=== PATIENT | male | born 1930 | race African-American/Black ===

== ENCOUNTER 2017-04-21 22:08 | Inpatient (IN) ==
--- NOTE | 2017-04-21 22:54 | Emergency Department Note ---
Rashawn Hernandez Brittany, am scribing for, and in the presence of, Mac Ann MD 22 :29. Marissa Hernandez Hans, MD, personally performed the services described in this documentation, ascribed by Dalila Morocho in my presence, and it is both accurate and complete . Arrival - Arrival Chief Complaint: Urogenital - Male Stated Complaint: UTI ED Nursing Triage Note: TRANSFER FROM [facility] FOR ADMISSION OF PATIENT. PT IS IN CARE OF DR TIAN Mode of Arrival: Stretcher Limitations: No Limitations Source: Patient, Family, RN Notes Reviewed Time Seen by Provider: 04/21/17 22:12 - History of Present Illness HPI Narrative: Patient is a 87 y/o black male presenting to the ED via EMS from [facility] for admission. Patient has a history of Bladder CA and is under the care of Dr. Morocho and Dr. Tian. Patient last received a chemotherapy treatment 2-3 weeks ago. He has bilateral nephrostomy tubes that are routinely changed every 2 months. Family at the bedside report that he has an appointment in [place], [place] to have these changed next week. Family reports that since receiving chemotherapy he has began to have some output through the urinary tract. Patient was to have a CT Abdomen/Pelvis performed at [facility] next week to see if chemotherapy has been effective. Family states that patient had been complaining of not feeling well throughout the day today. They note that he'd also been running a fever and complaining of abdominal pain which prompted their presentation to [facility]. Prior to transfer here to [facility] it is noted that patient received a dose of Levaquin. No further complaints. Allergies/Adverse Reactions: Allergies Allergy/AdvReac Type Severity Reaction Status Date / Time No Known Allergies Allergy Verified 10/27/16 15:31 Home Medications: Home Medications Medication Instructions Recorded Confirmed Type Metoprolol Succinate Xl [Toprol Xl] 50 mg PO DAILY 12/31/16 02/21/17 History Simvastatin [Zocor] 20 mg PO BEDTIME 12/31/16 02/21/17 History Tamsulosin [Flomax] 0.4 mg PO BID 12/31/16 02/21/17 History Review of System - Review of System 12 point system: reviewed and no additional remarkable complaints except as stated - Review of System Constitutional: Present: fever Respiratory: Absent: respiratory distress Gastrointestinal: Present: abdominal pain. Absent: nausea, vomiting Genitourinary male: Absent: urgency, dysuria, frequency Musculoskeletal: Absent: back pain Medical,Surgical,& Family Hx - Medical History Cardio: History of: Hypertension Endocrine: History of: Dyslipidemia Genitourinary: History of: Bladder Problem ([place]) Other: History of: Cancer - Surgical History Surgical History: noncontributory - Family History Family History: Reports;: Family Cancer, Family Diabetes - Social History Smoking Status: Never smoker Frequency of Alcohol Use: None Type of Drug Use: None Exam Vital Signs: Vital Signs Temperature 98.9 F 04/21/17 22:18 Pulse Rate 74 04/21/17 22:18 Respiratory Rate 18 04/21/17 22:18 Blood Pressure 160/70 04/21/17 22:18 O2 Sat by Pulse Oximetry 100 04/21/17 22:18 - General General appearance: alert, in no apparent distress - Head Head exam: Present: atraumatic, normocephalic, normal inspection - Eye Eye exam: Present: normal appearance, PERRL, EOMI - ENT ENT exam: Present: normal exam, normal oropharynx - Neck Neck exam: Present: normal inspection, full ROM, trachea midline - Chest Chest inspection: Present: normal inspection, symmetric chest wall rise - Respiratory Respiratory exam: Present: normal lung sounds bilaterally. Absent: respiratory distress - Cardiovascular Cardiovascular exam: Present: regular rate, normal rhythm, normal heart sounds - Abdominal Exam Abdominal exam: Present: soft, tenderness (suprapubic TTP), normal bowel sounds - Extremities Exam Extremities exam: Present: normal inspection - Back Exam Back exam: Present: other (Bilateral nephrostomy tubes) - Neurological Exam Neurological exam: Present: alert, oriented X3, CN II-XII intact. Absent: motor sensory deficit - Psychiatric Psychiatric exam: Present: normal affect, normal mood - Skin Skin exam: Present: warm, dry Course Course Narrative: The patient was transferred to [facility] with diagnosis of urinary tract infection with bilateral nephrostomy tubes in place. He is on chemotherapy. His oncologist requested admission to hospitalist. The patient's WBC was 26,[address] scans reviewed. The patient will be admitted for IV antibiotics and possible interrogation of his percutaneous nephrostomy tubes. Disposition Clinical Impression: Urinary tract infection Case discussed with: patient, patient's family Disposition: Still a Patient Condition: Stable Time of Disposition: 22:54
[2017-04-21] MEDS ORDERED: ONDANSETRON 4 MG/2 ML VIAL IV PRN (23:04)
[2017-04-21 23:19] LABS: Apearance,Urine CLEAR (Clear); Bacteria,Urine Occasional /HPF (Few); Bilirubin,Urine Negative (Negative); Blood, Urine Moderate mg/dL (Negative); Glucose,Urine (UA) Negative (Negative); Ketones,Urine Negative (Negative); Nitrite,Urine Negative (Negative); Protein,Urine Negative; RBC,Urine 2 /HPF (0-4); Urine Color Yellow (Yellow); Urine Specific Gravity 1.006 (1.001-1.035); Urine Urobilinogen < 2.0 EU/DL (0.2-1.0); WBC,Urine 18 /HPF (0-6)
[2017-04-21] MEDS ORDERED: SODIUM CHLORIDE 0.9% 1,000 ML IV SCH (23:30)
--- NOTE | 2017-04-22 00:39 | Hospitalist History & Physical ---
Assessment and Plan (1) History of bladder cancer Status: Acute Current Visit: Yes (2) Urinary tract infection Status: Acute Current Visit: Yes (3) Bilateral nephrostomy tubes Status: Acute Current Visit: Yes (4) History of hypertension Status: Acute Current Visit: Yes (5) Hyponatremia Status: Acute Current Visit: Yes (6) Anemia Status: Acute Assessment and plan: Our plan for this patient will be admitting him to our service. We will continue with IV hydration of normal saline. And expand antibiotics to include Zosyn. Recheck labs in the morning. Consult Dr. Tran for his evaluation of this patient. Discussed CODE STATUS with the family and patient would not want to be put on life support. Current Visit: Yes History of Present Illness Chief complaint: Transfer for admission from [facility] History of present illness: Mr. Irene is a 87 year old male with past medical history of bladder cancer, hypertension and increased cholesterol who finished his radiation and chemo approximately 3 weeks ago. Patient was scheduled to see Dr. Tran and Dr. Morocho Tuesday. Patient has nephrostomy tubes and is rescheduled to be replaced in [place] on next week. He has them replaced every 2 months. Patient has been complaining about feeling hot. He has been running a temperature for the past few days as high as 103. Patient went to [facility]. He had a CT scan of his abdomen and pelvis. The impression of the CT showed bilateral perinephric catheters demonstrated interval development of moderate left-sided hydronephrosis. Small air foci demonstrated within the bilateral renal collecting systems. There is peripheral hyperdensity within the posterior aspect of the renal pelvis on the left which measures up to 1.4 cm and may reflect hemorrhage or neoplasm. Significant wall thickening of the urinary bladder remains with the surrounding fat stranding suggesting inflammation. Irregular mass suggested with the inferior aspect of the bladder. Erosive change within the right pubis tuberculum again suspicious for malignancy involvement. Patient's urologist is Dr. Mcpherson. But secondary to him seeing Dr. Tran and Dr. Morocho's [place] wanted transfer the patient to our hospital. Hematology oncology thought it would be more appropriate for us to admit the patient. Home Medications Medication Instructions Recorded Confirmed Type Simvastatin [Zocor] 20 mg PO BEDTIME 12/31/16 02/21/17 History Tamsulosin [Flomax] 0.4 mg PO BID 12/31/16 02/21/17 History Aspirin [Ecotrin] 81 mg PO DAILY 04/22/17 04/22/17 History Sotalol [Betapace] 80 mg PO BID 04/22/17 04/22/17 History Allergies Allergy/AdvReac Type Severity Reaction Status Date / Time No Known Allergies Allergy Verified 10/27/16 15:31 Medical,Surgical,& Family Hx - Medical History Cardio: History of: Hypertension HEENT: History of: Ear Problem (hearing aids), Eye Problem (wears glasses) Endocrine: History of: Dyslipidemia Genitourinary: History of: Bladder Problem ([place]), Prostate Problems (cancer 17years), Recurring Urinary Tract Infections Hematology: No history of: Blood Transfusion Reaction Other: History of: Cancer - Surgical History HEENT Surgeries: Patient denies: Thyroid Surgery, Tonsilectomy & Adenoidectomy Orthopedic Surgeries: Surgical HX of;: Orthopedic Surgery - Family History Family History: Reports;: Family Cancer, Family Diabetes - Social History Smoking Status: Never smoker Frequency of Alcohol Use: None Type of Drug Use: None 12 point system: reviewed and no additional remarkable complaints except as stated Exam - Constitutional Vitals: Period Temp Pulse Resp BP Sys/Perez Pulse Ox Last 24 Hr 98.9 F-98.9 F 74-101 18-18 160-169/70-89 96-100 - General General appearance: alert, in no apparent distress - Head Head exam: Present: atraumatic, normocephalic, normal inspection - Eye Eye exam: Present: normal appearance, PERRL, EOMI - ENT ENT exam: Present: normal exam, normal oropharynx - Neck Neck exam: Present: normal inspection, full ROM, trachea midline - Chest Chest inspection: Present: normal inspection, symmetric chest wall rise - Respiratory Respiratory exam: Present: normal lung sounds bilaterally. Absent: respiratory distress - Cardiovascular Cardiovascular exam: Present: regular rate, normal rhythm, normal heart sounds - Abdominal Exam Abdominal exam: Present: soft, tenderness noted in the suprapubic area - Extremities Exam Extremities exam: Present: normal inspection - Back Exam Back exam: Present: other (Bilateral nephrostomy tubes) urine in left tube looks more infected than right tube - Neurological Exam Neurological exam: Present: alert, oriented X3, CN II-XII intact. - Psychiatric Psychiatric exam: Present: normal affect, normal mood - Skin Skin exam: Present: warm, dry Results - Labs Labs: Labs from outside facility displayed white count 1.4 hemoglobin 8.5 hematocrit 27.7 platelets 416 alk phos 228 ALT 45 AST 31 BUN 34 calcium 8.3 creatinine 2.1 carbon dioxide 23 chloride 95 glucose 123 potassium 4.8 sodium 127
[2017-04-22 06:50] LABS: Basophils % 0.1 % (0.0-0.8); Eosinophils % 0.1 % (0.00-10.9); Hematocrit 22.1 VOL% (42.0-52.0); Hemoglobin 7.1 GM/DL (14.0-18.0); Immature Granulocytes % 1.9 %; Immature Granulocytes Absolute 0.51 #; Lymphocytes # 0.8 10*3/uL (1.4-4.0); Mean Corpuscular HGB Conc 32.1 GM/DL (32-36); Mean Corpuscular Hemoglobin 28 PG (27-34); Monocytes # 1.8 10*3/uL (0.11-0.8); Monocytes % 6.6 % (1.7-12.7); Neutrophils # 23.6 10*3/uL (1.4-7.4); Neutrophils % 88.3 % (38.7-73.9); Platelet Count 293 T/CUMM (130-400); Red Blood Count 2.54 MC/CUMM (3.8-5.5); Red Cell Distribution Width 17.8 % (9.3-17.3); White Blood Count 26.7 T/CUMM (4-12)
[2017-04-22 07:23] LABS: Albumin 1.3 G/DL (3.4-5.0); Bilirubin,Total 0.8 MG/DL (0.2-1.0); Calcium 7.5 MG/DL (8.5-10.1); Osmolality,Calculated 271.5 MOS/KG (273-304); Potassium 5.5 MMOL/L (3.5-5.1); Total Protein 5.6 G/DL (6.4-8.3)
[2017-04-22 07:25] LABS: Band Neutrophils 5 % (0-10); Lymphocytes 2 % (20-55); Macrocytosis 1+; Segmented Neutrophils 90 % (50-85); Total Cells Counted 100
[2017-04-22 07:26] LABS: Burr Cells 2+; Platelet Estimate Increased; Polychromasia Slight; Target Cells Slight
--- NOTE | 2017-04-22 09:16 | Oncology Consult Note ---
Assessment and Plan (1) Bladder cancer Status: Acute Assessment and plan: This patient has received full dose radiotherapy to his bladder tumor. There is nothing else to offer from a treatment standpoint. Hopefully his radiation has controlled some tumor growth to buy him some further overall survival. His hemoglobin at baseline is only 8 so he is not far from baseline. I agree with antimicrobial coverage for possible underlying infection. He would also like to benefit from 2 units of blood. I had a lengthy discussion with his and the patient this morning about how there is nothing else to offer from an oncology standpoint. They should consider home hospice care but would need to wait to do this until after he has his stents exchanged next week at [facility]. Current Visit: Yes (2) Bilateral nephrostomy tubes Status: Acute Current Visit: Yes (3) Anemia Status: Acute Current Visit: Yes History of Present Illness History of present illness: Mr. Irene is a 87 year old male with locally advanced bladder cancer and bilateral nephrostomy tubes placed at [facility] who recently completed concurrent chemotherapy and radiation and early March 2017. He presented to [facility] last night with complaints of fever. He was found to be anemic with a hemoglobin of 7.1. His baseline usually runs around 8. CT scan done down there showed persistent thickening of the bladder consistent with previous findings. There is also some questionable findings of the kidney concerning for possible hemorrhaging versus infection. He has had numerous issues with his bilateral nephrostomy tubes has received care for these at [facility]. He was transferred [facility] from [place] for oncology evaluation. I had a lengthy discussion with the patient and his this morning. I explained to them there is nothing else to do from an oncology standpoint. The radiation that he received over the previous summer was a last ditch effort to try to control this tumor from growing any further. It was most likely not curative. Home Medications Medication Instructions Recorded Confirmed Type Simvastatin [Zocor] 20 mg PO BEDTIME 12/31/16 04/22/17 History Tamsulosin [Flomax] 0.4 mg PO BID 12/31/16 04/22/17 History Aspirin [Ecotrin] 81 mg PO DAILY 04/22/17 04/22/17 History Sotalol [Betapace] 80 mg PO BID 04/22/17 04/22/17 History Allergies Allergy/AdvReac Type Severity Reaction Status Date / Time No Known Allergies Allergy Verified 10/27/16 15:31 Medical,Surgical,& Family Hx - Medical History Cardio: History of: Hypertension HEENT: History of: Ear Problem (hearing aids), Eye Problem (wears glasses) Endocrine: History of: Dyslipidemia Genitourinary: History of: Bladder Problem ([place]), Prostate Problems (cancer 17years), Recurring Urinary Tract Infections Hematology: No history of: Blood Transfusion Reaction Other: History of: Cancer - Surgical History HEENT Surgeries: Patient denies: Thyroid Surgery, Tonsilectomy & Adenoidectomy Orthopedic Surgeries: Surgical HX of;: Orthopedic Surgery - Family History Family History: Reports;: Family Cancer, Family Diabetes - Social History Smoking Status: Never smoker Frequency of Alcohol Use: None Type of Drug Use: None 12 point system: reviewed and no additional remarkable complaints except as stated - Constitutional Constitutional: Present: fatigue, weakness. Absent: chills, fever(s) - EENT Nose, mouth and throat: Absent: dizziness - Cardiovascular Cardiovascular ROS IM: Absent: edema - Respiratory Respiratory: Absent: dyspnea - Genitourinary Genitourinary ROS male: Absent: hematuria Exam - Constitutional Vitals: Period Temp Pulse Resp BP Sys/Perez Pulse Ox Last 24 Hr 97.3 F-100.2 F 74-101 18-20 115-169/63-89 96-100 General appearance: no acute distress, under weight - Head Head Exam: Present: normocephalic, atraumatic - Eye Eye Exam: Present: EOMI. Absent: scleral icterus Pupils: Present: PERRL - ENT ENT exam: Present: normal exam, normal oropharynx - Neck Neck exam: Absent: lymphadenopathy, thyromegaly - Respiratory Respiratory exam: Present: CTAB. Absent: wheezes - Cardiovascular Cardiovascular exam: Present: RRR. Absent: JVD, systolic murmur - GI/Abdominal GI/Abdominal exam: Present: soft. Absent: ascites, distended, mass - Neurological Exam Neurological exam: Present: alert, oriented X3 - Psychiatric Psychiatric exam: Present: normal affect, normal mood - Skin Skin exam: Present: warm, dry Results - Labs CBC & BMP: 04/22/17 05:44 04/22/17 05:44 Lab Results: I have reviewed the past 24 hour labs - Diagnostic Findings Procedure: CT Abdomen and Pelvis: report reviewed by me
[2017-04-22] MEDS ORDERED: SODIUM CHLORIDE 0.9% 250 ML IV PRN ×2 (09:22→10:15)
[2017-04-22] MEDS: PANTOPRAZOLE 40 MG TABLET PO SCH (09:26)
[2017-04-22] MEDS: PIPERACILLIN/TAZOBACTAM 3,375 MG in SODIUM CHLORIDE 0.9% 100 ML IV SCH ×2 (09:27→18:08)
--- NOTE | 2017-04-22 11:09 | XRay Report ---
Portable chest Date: 04/22/2017 Clinical history: Coarse breath sounds Comparison: None Technique: Portable AP sitting chest Findings: The heart is minimally enlarged with uncoiling of the aorta. Calcified granulomata/nodes with diffuse parenchymal findings in the lungs. Degenerative changes are noted. Impression: Cardiomegaly with findings which can be seen with mild CHF/pneumonitis. Possible underlying chronic interstitial lung disease. PROCEDURE INTERPRETED AT [facility] DEPARTMENT OF RADIOLOGY Final Report Signed by: Dr. Chasity Campbell
--- NOTE | 2017-04-22 11:26 | XRay Report ---
Exam: XR knee 2V RT Date: 04/22/2017 9:22 AM Comparison: None Indication: Knee pain Technique:[AP and lateral right knee] Findings: Diffuse knee joint space narrowing with osteophytes and articular calcifications. Osteopenia with no definite fracture. Small knee joint effusion with vascular calcifications. 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 Small knee joint effusion. No evidence of fracture, dislocation, or definite bone destruction. Vascular calculations are noted. PROCEDURE INTERPRETED AT [facility] DEPARTMENT OF RADIOLOGY Final Report Signed by: Dr. Chasity Campbell
--- NOTE | 2017-04-22 11:28 | XRay Report ---
Exam: XR femur RT Date: 04/22/2017 9:22 AM Comparison: None Indication: Leg pain Technique:[AP and lateral right femur] Findings: Knee joint space narrowing. Articular calcifications noted in the knee. No definite fracture or dislocation. Vascular calcifications are noted. 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 No fracture or dislocation. No definite bone destruction. PROCEDURE INTERPRETED AT [facility] DEPARTMENT OF RADIOLOGY Final Report Signed by: Dr. Chasity Campbell
--- NOTE | 2017-04-22 14:34 | Hospitalist Progress Note ---
Assessment and Plan (1) Urinary tract infection Status: Acute Assessment and plan: cont zosyn, urine cx pending Current Visit: Yes (2) Bilateral nephrostomy tubes Status: Acute Assessment and plan: I have consulted urology to come and see him to ensure his nephrostomy tubes are still in a good place and have to remain. Current Visit: Yes (3) Hyponatremia Status: Acute Assessment and plan: diuresis with lasix Current Visit: Yes (4) Anemia Status: Acute Assessment and plan: 2 units of prbc Current Visit: Yes (5) Bladder cancer Status: Acute Assessment and plan: Has already received chemo and radiation, Hospice consulted Current Visit: Yes (6) CHF (congestive heart failure), NYHA class III Status: Acute Assessment and plan: lasix 20 mg IV every 12 hours and after each unit of PRBC, echo pending Current Visit: Yes Hospitalist: Subjective Interval history: According to patient's he just finished chemo and radiation therapy approximately a week ago. Patient has uncontrolled cancer and is hospice appropriate. Oncology refused to admit. We will ask Dr. Blunt to see. Patient needs PT and OT. Patient will need blood today. We will consult case management for hospice. Exam - Constitutional Vitals: Period Temp Pulse Resp BP Sys/Perez Pulse Ox Last 24 Hr 97.3 F-100.2 F 72-101 18-20 115-169/63-89 94-100 Exam: Heart Rate-[RRR] Lungs-[rhonchi] GI-[+bs soft, NT] Ext-[no edema] Neuro [Motor 4/5], [alert and oriented times 1] psych [depressed mood and flat affect] General [no acute distress] Results - Labs CBC & BMP: 04/22/17 05:44 04/22/17 05:44 Lab Results: I have reviewed the past 24 hour labs - Diagnostic Findings Procedure: Chest x-ray: report reviewed by me (CHF)
[2017-04-22] MEDS: FUROSEMIDE 20 MG/2 ML VIAL IV SCH (15:12)
[2017-04-22 19:08] LABS: Hematocrit 27.6 VOL% (42.0-52.0)
[2017-04-22 19:09] LABS: Hemoglobin 9.2 GM/DL (14.0-18.0)
[2017-04-22] MEDS: SOTALOL 80 MG TABLET PO SCH (21:00)
[2017-04-22] MEDS: TAMSULOSIN 0.4 MG CAPSULE PO SCH (21:01)
[2017-04-22] MEDS: MELATONIN 3 MG TABLET PO PRN (21:01)
[2017-04-22] MEDS: SIMVASTATIN 20 MG TABLET PO SCH (21:01)
[2017-04-22] MEDS: DESITIN 4OZ/NYSTATIN 15 GRAM MIXTURE PASTE TOP SCH (21:03)
--- NOTE | 2017-04-22 21:31 | Urology Consultation ---
Assessment and Plan - Time spent with patient Time spent with patient: Less than 30 minutes (nurses to flush nephrostomies q shift.) (1) Lt pyelitis II to hydronephrosis Problem details: Nephrostomy required irrigation to improve flow. Orders written for nurses to flush the tubes as this is usually accomplished by the family. Change tubes in the near future as scheduled and preferably to larger nephrosomies if available. Status: Chronic Assessment and plan: nephrostomy obstruction Current Visit: Yes History of Present Illness - Data of Consult Consult date: 04/22/17 Requesting Physician: halie Primary care physician: Bhavna Tee - Consult Narrative Reason for consult: possible obstruction of nephrostomy tube History of present illness: Mr. Irene is a 87 year old male with metastatic bladder cancer with obstructive ureteropathy and subsequent bilateral nephrostomy tube placement. CC: Joceline Abernathy MD Pt co fever and lt abd flank discomfort. - Home Medications and Allergies Home Medications: Home Medications Medication Instructions Recorded Confirmed Type Aspirin [Ecotrin] 81 mg PO DAILY 04/22/17 04/22/17 History Sotalol [Betapace] 80 mg PO BID 04/22/17 04/22/17 History Allergies/Adverse Reactions: Allergies Allergy/AdvReac Type Severity Reaction Status Date / Time No Known Allergies Allergy Verified 10/27/16 15:31 Medical,Surgical,& Family Hx - Medical History Cardio: History of: Congenital Heart Disease, Hypertension HEENT: History of: Ear Problem (hearing aids), Eye Problem (wears glasses) Endocrine: History of: Dyslipidemia Genitourinary: History of: Bladder Problem ([place]), Prostate Problems (cancer 17years), Recurring Urinary Tract Infections Hematology: No history of: Blood Transfusion Reaction Other: History of: Cancer - Surgical History HEENT Surgeries: Patient denies: Thyroid Surgery, Tonsilectomy & Adenoidectomy Orthopedic Surgeries: Surgical HX of;: Orthopedic Surgery - Family History Family History: Reports;: Family Cancer, Family Diabetes - Social History Smoking Status: Never smoker Frequency of Alcohol Use: None Type of Drug Use: None Exam - Constitutional Vitals: Period Temp Pulse Resp BP Sys/Perez Pulse Ox Last 24 Hr 97.3 F-100.2 F 72-101 18-20 115-169/63-89 18-100 - Genitourinary Genitourinary: scrotum without lesions, cysts, edema or rash, other (bilateral nephrostomies are in place. Lt side hydro on CT. Pt is supposed to have the nephrostomy flushed by family member daily and was last flushed Tuesday. I irrigated with ~ 30 ml and had a return of ~ 20 ml extra with improvement in excess retained volume as documented on CT. Nurses instructed on 5 ml flush q shift. Pt is due to visit [facility] for exchange in the next week or so. I have counciled them on the possibiltiy of slightly larger diameter nephrostomies to help reduce the risk of recurrent hydro and therefore recurrent pyelitis.) Results - Labs CBC & BMP: 04/22/17 19:00 04/22/17 05:44 Labs: Renal insufficiency. - Diagnostic Findings Procedure: CT Abdomen and Pelvis: other (lt hydro on [place] CT consistant with poss obst. of nephrostomy. Metastatic bladder cancer. )
[2017-04-23] MEDS: PIPERACILLIN/TAZOBACTAM 3,375 MG in SODIUM CHLORIDE 0.9% 100 ML IV SCH ×3 (02:20→16:21)
[2017-04-23 04:02] LABS: Basophils % 0.1 % (0.0-0.8); Eosinophils % 0.2 % (0.00-10.9); Hematocrit 27.5 VOL% (42.0-52.0); Immature Granulocytes % 1.6 %; Lymphocytes % 4.1 % (21.2-54.2); Mean Corpuscular HGB Conc 32.7 GM/DL (32-36); Mean Corpuscular Hemoglobin 28 PG (27-34); Mean Corpuscular Volume 84.6 FL (87-102); Mean Platelet Volume 10.2 FL (9.6-12.0); Monocytes % 7.8 % (1.7-12.7); Neutrophils % 86.2 % (38.7-73.9); Platelet Count 269 T/CUMM (130-400); Red Blood Count 3.25 MC/CUMM (3.8-5.5); Red Cell Distribution Width 17.2 % (9.3-17.3); White Blood Count 25.5 T/CUMM (4-12)
[2017-04-23 04:23] LABS: Calcium 7.6 MG/DL (8.5-10.1); Osmolality,Calculated 275.4 MOS/KG (273-304); Potassium 4.7 MMOL/L (3.5-5.1)
[2017-04-23 05:22] LABS: Band Neutrophils 2 % (0-10); Eosinophils 1 % (0-10); Lymphocytes 5 % (20-55); Segmented Neutrophils 86 % (50-85); Total Cells Counted 100
[2017-04-23 05:23] LABS: Anisocytosis 1+; Platelet Estimate Normal
[2017-04-23] MEDS: FUROSEMIDE 20 MG/2 ML VIAL IV SCH (08:47)
[2017-04-23] MEDS: SOTALOL 80 MG TABLET PO SCH ×2 (08:49→20:02)
[2017-04-23] MEDS: ASPIRIN EC 81 MG TABLET PO SCH (08:50)
[2017-04-23] MEDS: TAMSULOSIN 0.4 MG CAPSULE PO SCH ×2 (08:50→20:02)
[2017-04-23] MEDS: DESITIN 4OZ/NYSTATIN 15 GRAM MIXTURE PASTE TOP SCH ×2 (08:50→20:02)
[2017-04-23] MEDS: PANTOPRAZOLE 40 MG TABLET PO SCH (08:50)
--- NOTE | 2017-04-23 13:05 | Hospitalist Progress Note ---
Assessment and Plan (1) Urinary tract infection Status: Acute Assessment and plan: cont zosyn, urine cx pending but probably pseudomonas Current Visit: Yes (2) Bilateral nephrostomy tubes Status: Acute Assessment and plan: Thx to help from urology Current Visit: Yes (3) Hyponatremia Status: Acute Assessment and plan: increase diuresis with lasix Current Visit: Yes (4) Anemia Status: Acute Assessment and plan: hgb 9 Current Visit: Yes (5) Bladder cancer Status: Acute Assessment and plan: Has already received chemo and radiation, Hospice consulted Current Visit: Yes (6) CHF (congestive heart failure), NYHA class III Status: Acute Assessment and plan: increase lasix to 40 mg IV every 12 hours. echo done but reading pending Current Visit: Yes Hospitalist: Subjective Interval history: Patient more alert today. is at bedside asking when he can go home. Patient is a candidate for hospice. We are awaiting his urine cultures. I have spoken with micro and it looks like Pseudomonas but we are waiting Exam - Constitutional Vitals: Period Temp Pulse Resp BP Sys/Perez Pulse Ox Last 24 Hr 98.1 F-100.6 F 72-84 17-20 126-163/69-80 18-98 Exam: Heart Rate-[RRR] Lungs-[clear] GI-[+bs soft, NT] Ext-[no edema] Neuro [Motor 4/5], [alert and oriented times 2 more responsive] psych [depressed mood and flat affect] General [no acute distress] Results - Labs CBC & BMP: 04/23/17 03:23 04/23/17 03:23 Lab Results: I have reviewed the past 24 hour labs Labs: Urine culture pending but looks like Pseudomonas. - Diagnostic Findings Procedure: Chest x-ray: report reviewed by me, pending (Cardiomegaly with CHF)
--- NOTE | 2017-04-23 14:21 | Urology Progress Note ---
Assessment and Plan (1) Lt pyelitis II to hydronephrosis Problem details: Nephrostomy required irrigation to improve flow. Orders written for nurses to flush the tubes as this is usually accomplished by the family. Change tubes in the near future as scheduled and preferably to larger nephrosomies if available. Status: Chronic Assessment and plan: nephrostomy obstruction. 04/23/17 nephrosomies patent . No fever, No leukocytosis. Pt to [facility] for nephrostomy exchange. I have recommended the family suggest larger tubes. Will re-evaluate as needed. Thanks. Current Visit: Yes Urology - PN: Subj Interval history: The patient is laying in bed today and smiling and in do discomfort. nephrostomies draining. 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
[2017-04-23] MEDS: FUROSEMIDE 40 MG/4 ML VIAL IV SCH (16:16)
[2017-04-23] MEDS: SIMVASTATIN 20 MG TABLET PO SCH (20:02)
[2017-04-23] MEDS: ACETAMINOPHEN 325 MG TABLET PO PRN (20:02)
[2017-04-23] MEDS: MELATONIN 3 MG TABLET PO PRN (20:08)
[2017-04-24] MEDS: PIPERACILLIN/TAZOBACTAM 3,375 MG in SODIUM CHLORIDE 0.9% 100 ML IV SCH ×3 (00:17→16:40)
[2017-04-24 06:44] LABS: Basophils % 0.1 % (0.0-0.8); Eosinophils # 0.1 10*3/uL (0.0-0.87); Eosinophils % 0.5 % (0.00-10.9); Hemoglobin 9.2 GM/DL (14.0-18.0); Immature Granulocytes % 4.1 %; Immature Granulocytes Absolute 1.19 #; Lymphocytes # 1.1 10*3/uL (1.4-4.0); Lymphocytes % 3.6 % (21.2-54.2); Mean Corpuscular HGB Conc 32.9 GM/DL (32-36); Mean Corpuscular Hemoglobin 28 PG (27-34); Mean Corpuscular Volume 84.6 FL (87-102); Mean Platelet Volume 9.4 FL (9.6-12.0); Monocytes # 2.3 10*3/uL (0.11-0.8); Neutrophils # 24.3 10*3/uL (1.4-7.4); Neutrophils % 83.7 % (38.7-73.9); Platelet Count 320 T/CUMM (130-400); Red Blood Count 3.31 MC/CUMM (3.8-5.5); Red Cell Distribution Width 17.1 % (9.3-17.3); White Blood Count 29.1 T/CUMM (4-12)
[2017-04-24 07:11] LABS: Calcium 7.9 MG/DL (8.5-10.1); Osmolality,Calculated 274.4 MOS/KG (273-304); Potassium 4.3 MMOL/L (3.5-5.1)
[2017-04-24 07:25] LABS: Hypochromasia 1+; Lymphocytes 4 % (20-55); Ovalocytes Slight; Platelet Estimate Adequate; Segmented Neutrophils 88 % (50-85); Total Cells Counted 100
[2017-04-24 07:26] LABS: Giant Platelets Few
[2017-04-24] MEDS: PANTOPRAZOLE 40 MG TABLET PO SCH (09:02)
[2017-04-24] MEDS: TAMSULOSIN 0.4 MG CAPSULE PO SCH ×2 (09:02→20:50)
[2017-04-24] MEDS: DESITIN 4OZ/NYSTATIN 15 GRAM MIXTURE PASTE TOP SCH ×2 (09:02→20:55)
[2017-04-24] MEDS: FUROSEMIDE 40 MG/4 ML VIAL IV SCH ×2 (09:02→16:39)
[2017-04-24] MEDS: SOTALOL 80 MG TABLET PO SCH ×2 (09:02→20:50)
[2017-04-24] MEDS: ASPIRIN EC 81 MG TABLET PO SCH (09:02)
--- NOTE | 2017-04-24 12:11 | Hospitalist Progress Note ---
Assessment and Plan (1) Urinary tract infection Status: Acute Assessment and plan: cont zosyn will add Flagyl., Urine cultures still pending but growing gram- positive rods and gram-negative rods. Patient has nephrostomy tubes which are draining well. Current Visit: Yes (2) Bilateral nephrostomy tubes Status: Acute Assessment and plan: Thx to help from urology Current Visit: Yes (3) Hyponatremia Status: Acute Assessment and plan: Improving with diuresis Current Visit: Yes (4) Anemia Status: Acute Assessment and plan: hgb 9 Current Visit: Yes (5) Bladder cancer Status: Acute Assessment and plan: Has already received chemo and radiation, Hospice consulted Current Visit: Yes (6) CHF (congestive heart failure), NYHA class III Status: Acute Assessment and plan: Continue Lasix to 40 mg IV every 12 hours. echo done but reading pending Current Visit: Yes Hospitalist: Subjective Interval history: Patient growing a gram-positive ashleigh and possible Pseudomonas in his urine. Patient has a lot of complaints about pain on his right leg and knee and shows extensive arthritis on x-ray films. Exam - Constitutional Vitals: Period Temp Pulse Resp BP Sys/Perez Pulse Ox Last 24 Hr 97.6 F-100.7 F 69-94 18-22 114-167/65-95 96-100 Exam: Heart Rate-[RRR] Lungs-[crackles fine improved] GI-[+bs soft, NT] Ext-[no edema] Neuro [Motor 4/5], [alert and oriented times 2 psych [depressed mood and flat affect] General [no acute distress] Results - Labs CBC & BMP: 04/24/17 05:57 04/24/17 05:57 Lab Results: I have reviewed the past 24 hour labs Labs: Blood cultures pending. Urine growing gram-negative ashleigh possible Pseudomonas and gram-positive ashleigh unknown.
--- NOTE | 2017-04-24 13:03 | Order Completion Report ---
See report scanned to EMR
[2017-04-24] MEDS: metroNIDAZOLE INJ 500 MG in PREMIX 1 EACH IV SCH ×2 (13:09→17:36)
[2017-04-24] MEDS: SIMVASTATIN 20 MG TABLET PO SCH (20:50)
[2017-04-24] MEDS: ACETAMINOPHEN 325 MG TABLET PO PRN (20:51)
[2017-04-24] MEDS: MELATONIN 3 MG TABLET PO PRN (20:54)
[2017-04-25] MEDS: metroNIDAZOLE INJ 500 MG in PREMIX 1 EACH IV SCH ×3 (00:23→12:37)
[2017-04-25] MEDS: PIPERACILLIN/TAZOBACTAM 3,375 MG in SODIUM CHLORIDE 0.9% 100 ML IV SCH ×2 (01:33→09:29)
[2017-04-25 07:11] LABS: Basophils % 0.1 % (0.0-0.8); Eosinophils # 0.2 10*3/uL (0.0-0.87); Eosinophils % 0.7 % (0.00-10.9); Hematocrit 27.4 VOL% (42.0-52.0); Immature Granulocytes % 1.8 %; Immature Granulocytes Absolute 0.47 #; Lymphocytes % 3.8 % (21.2-54.2); Mean Corpuscular HGB Conc 32.8 GM/DL (32-36); Mean Corpuscular Hemoglobin 28 PG (27-34); Mean Corpuscular Volume 84.6 FL (87-102); Mean Platelet Volume 9.6 FL (9.6-12.0); Monocytes # 2.2 10*3/uL (0.11-0.8); Monocytes % 8.4 % (1.7-12.7); Neutrophils % 85.2 % (38.7-73.9); Platelet Count 362 T/CUMM (130-400); Red Blood Count 3.24 MC/CUMM (3.8-5.5); Red Cell Distribution Width 16.9 % (9.3-17.3); White Blood Count 25.8 T/CUMM (4-12)
[2017-04-25 07:44] LABS: Calcium 7.8 MG/DL (8.5-10.1); Osmolality,Calculated 273.4 MOS/KG (273-304); Potassium 3.7 MMOL/L (3.5-5.1)
[2017-04-25] MEDS: SOTALOL 80 MG TABLET PO SCH ×2 (09:28→20:32)
[2017-04-25] MEDS: ASPIRIN EC 81 MG TABLET PO SCH (09:28)
[2017-04-25] MEDS: FUROSEMIDE 40 MG/4 ML VIAL IV SCH ×2 (09:29→17:03)
[2017-04-25] MEDS: DESITIN 4OZ/NYSTATIN 15 GRAM MIXTURE PASTE TOP SCH ×2 (09:29→21:48)
[2017-04-25] MEDS: PANTOPRAZOLE 40 MG TABLET PO SCH (09:29)
[2017-04-25] MEDS: TAMSULOSIN 0.4 MG CAPSULE PO SCH ×2 (09:29→20:32)
--- NOTE | 2017-04-25 09:47 | Physician Query Form ---
CLICK EDIT DOCUMENT TO SELECT QUERY ANSWER --> OK --> SIGN Lisbet Pinto RN Clinical Substance Addiction Coordinator W) [phone] (f) [phone] [email or web address] PROVIDERS: Make your selection(s) from the choices in EACH section by typing an "x" and enter comments in the comment section. Please use your independent medical judgment in providing your response. This request does not imply that any particular answer is desired or expected. CLINICAL INDICATORS: (Providers should not edit this section) Based on documentation of "acute CHF", [id number], Echo showed EF of 60% with Grade 1 diastolic dysfunction. Pt. treated with IV Lasix. Please provide further specificity regarding CHF. TYPE: ( ) Systolic (HFrEF - heart failure with reduced systolic function/EF) ( x) Diastolic (HFpEF - heart failure with preserved systolic function/EF) ( ) Combined Systolic/Diastolic ( ) Other, please specify: ( ) Clinically unable to determine COMMENTS: PLEASE ALSO DOCUMENT RESPONSE IN PROGRESS NOTES AND/OR DISCHARGE SUMMARY Use of terms such as suspected, likely, or probable (associated with a specific diagnosis that is being evaluated, monitored, or treated as if it exists) are acceptable and can be restated in the discharge summary if not ruled out. MTDD
--- NOTE | 2017-04-25 09:50 | Physician Query Form ---
CLICK EDIT DOCUMENT TO SELECT QUERY ANSWER --> OK --> SIGN Lisbet Pinto RN Clinical Bead Wrapper W) [phone] (f) [phone] [email or web address] PROVIDERS: Make your selection(s) from the choices in EACH section by typing an "x" and enter comments in the comment section. Please use your independent medical judgment in providing your response. This request does not imply that any particular answer is desired or expected. CLINICAL INDICATORS: (Providers should not edit this section) Based on lab results of creatinine on admission of 1.80 with a GFR of 38 and decreased to 1.10. Pt. treated with IV fluids of Normal Saline. Clarify which of the following most accurately represents the patient's renal status: ( x) Acute kidney injury (non-traumatic) ( ) Acute renal failure ( ) Acute renal failure with underlying Chronic Kidney Disease (CKD) - please provide stage below ( ) CKD - please provide stage below ( ) Other, please specify: ( ) Clinically unable to determine Chronic Kidney Disease Stages Source: National Kidney Disease Foundation ( ) Stage I (eGFR > or = 90) ( ) Stage II (eGFR 60 - 89) ( ) Stage III (eGFR 30 - 59) ( ) Stage IV (eGFR 15 - 29) ( ) Stage V (eGFR < 15 or dialysis) COMMENTS: PLEASE ALSO DOCUMENT RESPONSE IN PROGRESS NOTES AND/OR DISCHARGE SUMMARY Use of terms such as suspected, likely, or probable (associated with a specific diagnosis that is being evaluated, monitored, or treated as if it exists) are acceptable and can be restated in the discharge summary if not ruled out. MTDD
--- NOTE | 2017-04-25 10:20 | Hospitalist Progress Note ---
Assessment and Plan (1) Urinary tract infection Status: Acute Assessment and plan: Impression: 1. Catheter associated urinary infection 2. Bladder cancer Plan: Await final identification of organisms in the urine. Infectious diseases apparently going to see the patient today. Hope to discharge soon. Family is going to reschedule appointment in [place] for the nephrostomy tube exchange. This note was completed using [employer] voice recognition software. There may be tinsel machine operator errors as a result. Current Visit: Yes Qualifiers: Urinary tract infection type: catheter-associated UTI Indwelling urinary catheter type: nephrostomy catheter Encounter type: initial encounter Qualified Code(s): T83.512A - Infection and inflammatory reaction due to nephrostomy catheter, initial encounter; N39.0 - Urinary tract infection, site not specified; N39.0 - Urinary tract infection, site not specified Hospitalist: Subjective Interval history: Follow-up catheter associated urinary infection with bladder cancer and bilateral nephrostomy tubes. The patient has tolerated breakfast. He seems to be tolerating antibiotics fairly well. He reports no new complaints. We are waiting on final reports from the lab regarding the organisms in the urine. The says that he has an appointment scheduled in [place] for nephrostomy tube change. This is apparently done every other month. The appointment scheduled for this . They may go ahead and reschedule for next week. Exam - Constitutional Vitals: Period Temp Pulse Resp BP Sys/Perez Pulse Ox Last 24 Hr 97.4 F-101.8 F 65-83 18-20 116-145/59-68 94-100 Vital signs are noted above. Heart is regular with a soft systolic murmur. Chest is fairly clear. Abdomen is soft without mass. He is awake and conversant Results - Labs CBC & BMP: 04/25/17 06:06 04/25/17 06:06 Lab Results: I have reviewed the past 24 hour labs (White count remains elevated.)
--- NOTE | 2017-04-25 12:40 | Infectious Disease Consult ---
Assessment and Plan (1) Bladder cancer Status: Acute Assessment and plan: Locally advanced and no longer amenable to chemotherapy or radiation therapy. Hospice advised per oncology. This may actually be the cause of intermittent fever. Blood cultures negative so far. Current Visit: Yes (2) Urinary tract infection Status: Acute Assessment and plan: Positive urine culture for 2 organisms. Recommendations: I am going to discontinue Zosyn and Flagyl and put the patient on ceftriaxone 1 g daily. The gram-positive ashleigh has been sent to reference lab so it will be several days before we get this identified. Clinically the patient seems to be better with clear urine coming from each tube so it seems his infection is resolving, if not already resolved. Thank you very much for the consult. Will follow. Discussed with patient's and granddaughter at bedside Current Visit: Yes Qualifiers: Urinary tract infection type: catheter-associated UTI Indwelling urinary catheter type: nephrostomy catheter Encounter type: initial encounter Qualified Code(s): T83.512A - Infection and inflammatory reaction due to nephrostomy catheter, initial encounter; N39.0 - Urinary tract infection, site not specified; N39.0 - Urinary tract infection, site not specified History of Present Illness Chief complaint: Positive urine culture History of present illness: Mr. Irene is a 87 year old male with advanced bladder cancer presented to hospital because of fever and discoloration of urine from left ureteric stent. He has bilateral nephrostomy tubes. When he came in culture was done of the urine but the source is not specified [questionably from the right versus left nephrostomy tube or from bladder catheterization]. The culture came back +2 organisms and I am asked to assist with management. The patient is currently on Zosyn and Flagyl. He has had intermittent fever since being here and also some pelvic discomfort. Patient did have chemotherapy and radiation therapy however it is felt that there is nothing further to offer oncology poole, so patient was recommended for hospice. Home Medications Medication Instructions Recorded Confirmed Type Simvastatin [Zocor] 20 mg PO BEDTIME 12/31/16 04/22/17 History Tamsulosin [Flomax] 0.4 mg PO BID 12/31/16 04/22/17 History Aspirin [Ecotrin] 81 mg PO DAILY 04/22/17 04/22/17 History Sotalol [Betapace] 80 mg PO BID 04/22/17 04/22/17 History Allergies Allergy/AdvReac Type Severity Reaction Status Date / Time No Known Allergies Allergy Verified 10/27/16 15:31 12 point system: reviewed and no additional remarkable complaints except as stated (Per HPI) Medical,Surgical,& Family Hx - Medical History Cardio: History of: Congenital Heart Disease, Hypertension HEENT: History of: Ear Problem (hearing aids), Eye Problem (wears glasses) Endocrine: History of: Dyslipidemia Genitourinary: History of: Bladder Problem ([place]), Prostate Problems (cancer 17years), Recurring Urinary Tract Infections Hematology: No history of: Blood Transfusion Reaction Other: History of: Cancer - Surgical History HEENT Surgeries: Patient denies: Thyroid Surgery, Tonsilectomy & Adenoidectomy Orthopedic Surgeries: Surgical HX of;: Orthopedic Surgery - Family History Family History: Reports;: Family Cancer, Family Diabetes - Social History Smoking Status: Never smoker Frequency of Alcohol Use: None Type of Drug Use: None Infectious Disease Exam H&P - Constitutional Vitals: Vital Signs Temp Pulse Resp BP Pulse Ox 98.5 F 71 20 139/69 96 04/25/17 12:00 04/25/17 12:00 04/25/17 12:00 04/25/17 12:00 04/25/17 12:00 Intake and Output 04/24/17 04/25/17 04/25/17 23:59 07:59 15:59 Intake Total 660 / 660 300 / 300 Output Total 1850 / 1850 800 / 800 Balance -1190 / -1190 -500 / -500 Intake: IV 300 / 300 300 / 300 Zosyn 3,375 mg In Ns 100 200 / 200 100 / 100 ml @ 25 mls/hr IV Q8H KELLIE Rx#:[id number] Flagyl Inj 500 mg In 100 / 100 200 / 200 Premix 1 Each @ 100 mls/ hr IV Q6H KELLIE Rx#: [id number] Oral 360 / 360 0 / 0 Output: Urine 1850 / 1850 800 / 800 Other: Voiding Method Nephrostomy Tubes Nephrostomy Tubes # Bowel Movements 0 0 Exam: General: Patient frail but relatively comfortable HEENT: Mucous membranes pale pink and moist, anicteric acyanotic, RACHELLE, no oropharyngeal exudates Neck: Supple, no thyroid gland enlargement Respiratory system: Breath sounds vesicular, no crepitations or wheezes Cardiovascular: Normal S1 and S2, no murmurs appreciated Abdomen: Normal bowel sounds, soft nontender throughout, no organomegaly or mass Genitourinary: Bilateral nephrostomy tubes draining clear urine, mild suprapubic discomfort, also mass coming from pelvis palpated Extremities: no edema Skin: No rash Reports - Labs CBC & BMP: 04/25/17 06:06 04/25/17 06:06 Labs: Laboratory Results - last 24 hr 04/25/17 04/25/17 06:06 06:06 WBC 25.8 H RBC 3.24 L Hgb 9.0 L Hct 27.4 L MCV 84.6 L MCH 28 MCHC 32.8 RDW 16.9 Plt Count 362 MPV 9.6 Neut % (Auto) 85.2 H Lymph % (Auto) 3.8 L Gem % (Auto) 8.4 Eos % (Auto) 0.7 Baso % (Auto) 0.1 Neut # (Auto) 22.0 H Lymph # (Auto) 1.0 L Gem # (Auto) 2.2 H Eos # (Auto) 0.2 Baso # (Auto) 0.0 Immature Gran % 1.8 Nucleated RBC % 0.0 Immature Gran # 0.47 Nucleated RBCs # 0.00 Immature Plt Fraction 0.0 Sodium 133 L Potassium 3.7 Chloride 98 Carbon Dioxide 24 Anion Gap 14.7 BUN 35 H Creatinine 1.10 GFR Calculation 70 BUN/Creatinine Ratio 31.00 H Glucose 90 Calculated Osmolality 273.4 Calcium 7.8 L - Reports Microbiology: Microbiology 04/21/17 Unknown Urine Culture - Preliminary Urine,Catheterized Alcaligenes faecalis Gram positive rods 04/23/17 13:18 Blood Culture - Preliminary Blood No growth at 1 day 04/23/17 13:18 Blood Culture - Preliminary Blood No growth at 1 day - Diagnostic Findings Procedure: CT Abdomen and Pelvis: report reviewed by me (Report of skin damage was noted with pelvic mass and some inflammatory changes)
[2017-04-25] MEDS: SIMVASTATIN 20 MG TABLET PO SCH (20:32)
[2017-04-25] MEDS: MELATONIN 3 MG TABLET PO PRN (20:36)
[2017-04-26] MEDS: SOTALOL 80 MG TABLET PO SCH (09:14)
[2017-04-26] MEDS: TAMSULOSIN 0.4 MG CAPSULE PO SCH (09:14)
[2017-04-26] MEDS: ASPIRIN EC 81 MG TABLET PO SCH (09:14)
[2017-04-26] MEDS: FUROSEMIDE 40 MG/4 ML VIAL IV SCH (09:14)
[2017-04-26] MEDS: PANTOPRAZOLE 40 MG TABLET PO SCH (09:15)
[2017-04-26] MEDS: DESITIN 4OZ/NYSTATIN 15 GRAM MIXTURE PASTE TOP SCH (09:16)
--- NOTE | 2017-04-26 13:52 | Discharge Summary ---
Hospital Course - Hospital Course Hospital Course: Discharge diagnosis: Catheter associated urinary tract infection Bladder cancer Chronic diastolic congestive heart failure. The patient presented to the hospital and was found to have a urinary infection. This was treated with IV antibiotics. He ended up growing couple of different organisms. Urine cleared while he was in the hospital. He was seen by oncology. There was nothing further to offer him regarding his bladder cancer. Hospice was recommended. The patient and the family will go home with home health, and probably convert to hospice at some point in the future. We will send him home on about 5 days of Bactrim. Medication reconciliation has been performed. Resume home diet. Activity as tolerated. This note was completed using [employer] voice recognition software. There may be chassis driver errors as a result. Diagnosis - Discharge Diagnosis (1) Urinary tract infection Status: Acute Discharge Plan - Discharge Data Disposition: Home Health Service Condition at Discharge: Stable Discharge Diet: advance to your usual diet Activity: resume usual activities as tolerated Hygiene: no restrictions - Discharge Medications New Sulfameth/Trimeth 800-160 Tab [Bactrim DS Tab] 1 tablet PO BID #10 tablet Continue Tamsulosin [Flomax] 0.4 mg PO BID Simvastatin [Zocor] 20 mg PO BEDTIME Aspirin [Ecotrin] 81 mg PO DAILY Sotalol [Betapace] 80 mg PO BID - Follow Up or Referral - Forms/Instructions Exam - Constitutional Vitals: Period Temp Pulse Resp BP Sys/Perez Pulse Ox Last 24 Hr 97.9 F-99.4 F 70-78 18-21 104-146/53-68 95-98 Vital signs are noted above. Heart is regular with distant tones and no murmur. Chest is fairly clear. Abdomen is soft without mass. He is awake and alert. Discharge Results Procedures and tests throughout hospitalization: Pending Orders 04/21/17 Urine Culture Routine 04/23/17 13:18 Blood Culture Stat 04/24/17 12:12 C. Diff Toxins A & B Stat Labs on day of discharge: Preliminary micro results at discharge 04/23/17 13:18 Blood Culture - Preliminary Blood No growth at 3 days 04/23/17 13:18 Blood Culture - Preliminary Blood No growth at 3 days 04/21/17 Unknown Urine Culture - Preliminary Urine,Catheterized Alcaligenes faecalis Gram positive rods DS: Provider Date of admission: 04/21/17 22:58 Primary care physician: Frankie Briscoe MD Attending physician on admission: Joceline Abernathy MD Consults: 04/21/17 23:04 Consult to Physician [CONS] Routine Comment: one of your patients Consulting Provider: Thom Gonzalez Person Notified: TAE Date Notified: 04/22/17 Time Notified: 08:38 04/22/17 00:24 Consult to Dietitian [CONS] Routine Reason for Dietitian: Other Consult Comment: admission assessment Consult to Pastoral Services [CONS] Routine Comment: Pastoral Screen: Request Guard Entrance Registrar Visit Pastoral Screen Source of Request: Patient Family 04/22/17 09:43 Consult to Physician [CONS] Routine Comment: bladder ca with nephrostomy tubes. Consulting Provider: Nasim Blunt Person Notified: ANDRIY Date Notified: 04/22/17 Time Notified: 09:54 04/22/17 10:13 Consult to Case Mgmt/Social Srvs [CONS] Routine Reason for Case Mgmt/Social Srvs: Hospice Referral Consult to Occupational Therapy [CONS] Routine Reason for Occupational Therapy: Evaluate and Treat Consult to Physical Therapy [CONS] Routine Reason for Physical Therapy: Evaluate and Treat 04/24/17 15:07 Consult to Physician [CONS] Routine Comment: abx choices, Consulting Provider: Roberta Marion When should Consulting Provider be notified: In am Discharging clinician: Jeremias Faith MD Expected date of discharge: 04/26/17
--- NOTE | 2017-04-26 14:24 | Infectious Disease Progress ---
Assessment and Plan (1) Bladder cancer Status: Acute Assessment and plan: Locally advanced and no longer amenable to chemotherapy or radiation therapy. Hospice advised per oncology. This may actually be the cause of intermittent fever. Blood cultures negative so far. Current Visit: Yes (2) Urinary tract infection Status: Acute Assessment and plan: Patient can go home on Bactrim double strength 1 tablet daily for chronic suppression of UTIs. I will sign off now. Call again as needed. Current Visit: Yes Qualifiers: Urinary tract infection type: catheter-associated UTI Indwelling urinary catheter type: nephrostomy catheter Encounter type: initial encounter Qualified Code(s): T83.512A - Infection and inflammatory reaction due to nephrostomy catheter, initial encounter; N39.0 - Urinary tract infection, site not specified; N39.0 - Urinary tract infection, site not specified Infectious Disease - PN: Subj Interval history: Patient generally doing okay. No fever for almost 48 hours. Tolerating antibiotic without nausea vomiting or diarrhea. Infectious Disease Exam (PN) - Constitutional Vitals: Temp Pulse Resp BP Pulse Ox 98.8 F 70 18 120/58 98 04/26/17 11:42 04/26/17 11:42 04/26/17 11:42 04/26/17 11:42 04/26/17 11:42 General appearance: no acute distress, under weight Exam: General appearance: no acute distress - Eye Eye exam: Present: EOMI. no icterus Pupils: Present: RACHELLE - ENT ENT exam: no oral exudates - Respiratory Respiratory exam: vesicular BS, no crepitations or wheezes - Cardiovascular Cardiovascular exam: regular rate and rhythm, no murmurs - GI/Abdominal GI/Abdominal exam: normal bowel sounds, soft, non-tender, no organomegaly or mass - Clear urine from nephrostomy tubes bilaterally - Extremities Exam Extremities exam: no edema - Skin Skin exam: no rash Results - Labs CBC & BMP: 04/25/17 06:06 04/25/17 06:06 Lab Results: I have reviewed the past 24 hour labs
[2017-04-26 16:31] VITALS: BP 151/84
--- NOTE | 2017-04-27 13:43 | Physician Query Form ---
CLICK EDIT DOCUMENT TO SELECT QUERY ANSWER --> OK --> SIGN Lisbet Pinto RN Clinical Vice President Of Finance W) [phone] (f) [phone] [email or web address] PROVIDERS: Make your selection(s) from the choices in EACH section by typing an "x" and enter comments in the comment section. Please use your independent medical judgment in providing your response. This request does not imply that any particular answer is desired or expected. CLINICAL INDICATORS: (Providers should not edit this section) There is conflicting documentation in the record of "acute diastolic CHF" and "chronic diastolic CHF". [id number], Pt. treated with IV Lasix. Please clarify the acuity of the CHF. Clarify which of the following accurately represents the acuity of the above diagnosis. ( ) Acute (x ) Acute on chronic ( ) Chronic stable condition ( ) Remission ( ) Other, please specify: ( ) Clinically unable to determine COMMENTS: PLEASE ALSO DOCUMENT RESPONSE IN PROGRESS NOTES AND/OR DISCHARGE SUMMARY Use of terms such as suspected, likely, or probable (associated with a specific diagnosis that is being evaluated, monitored, or treated as if it exists) are acceptable and can be restated in the discharge summary if not ruled out. [facility]
== END 2017-04-26 16:32 | disposition hospice, home (50) | DRG 698 ==
LOC: EDBD → EDUNIT# → N.ED 22:08 → N.EDINP 22:58 → SUATTDRO 22:58 → N.2E 23:29
PROVIDERS: ADMIT Internal Medicine; ATTEND Internal Medicine Geriatric Medicine